=== PATIENT | male | born 2000 | race Caucasian/White ===

== ENCOUNTER 2024-12-31 09:43 | Outpatient (AMB) | payer OTHER, SELFPAY ==
--- NOTE | 2024-12-31 09:57 | MHC.PC.OV ---
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 Has not been to MD since pediatrics. Accompanied by girlfriend Patient notes daily anxiety. Infrequent panic attacks. He has dealt with anxiety since childhood. He was on previously on prozac years ago. He does not recall if it was effective but does not remember having any untoward side effects. He previously was drinking and smoking to deal with stress. 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 He has mild asthma and has used albuterol in the past. ROS CONSTITUTIONAL: Denies weight loss, fever and chills. HEENT: Denies changes in vision and hearing. Reports palpable neck nodes RESPIRATORY: Denies SOB and cough. CV: Denies palpitations and CP GI: Denies abdominal pain, nausea, vomiting and diarrhea. : Denies dysuria and urinary frequency. MSK: Denies new myalgia and joint pain. SKIN: Denies rash and pruritus. NEUROLOGICAL: Denies headache PSYCHIATRIC: Denies recent changes in mood. PHYSICAL EXAM: GENERAL: Alert and oriented x 3. NAD EYES: EOMI. Anicteric. HENT: Moist mucous membranes. No scleral icterus. scattered small cervical LN. heterogenous thyroid LUNGS: Clear to auscultation bilaterally. CARDIOVASCULAR: Regular rate and rhythm. No murmur. No JVD. ABDOMEN: Soft, non-tender +bs EXTREMITIES: No edema. Non-tender. SKIN: No rashes or lesions. Warm. NEUROLOGIC: No focal neurological deficits. CN II-XII grossly intact PSYCHIATRIC: Cooperative. 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 1. Little interest or pleasure in doing things: not at all 2. Feeling down, depressed, or hopeless: not at all 3. Trouble falling or staying asleep, or sleeping too much: not at all 4. Feeling tired or having little energy: several days 5. Poor appetite or overeating: not at all 6. Feeling bad about yourself - or that you are a failure or have let yourself or your family down: not at all 7. Trouble concentrating on things, such as reading the newspaper or watching television: not at all 8. Moving or speaking so slowly that other people could have noticed. Or the opposite - being so fidgety or restless that you have been moving around a lot more than usual: not at all 9. Thoughts that you would be better off or of hurting yourself in some way: not at all Total score: 1 Depression Screening Interpretation: Negative Depression Screening Done: Yes 05679 - PHQ-9 Billing: Yes Source: Developed by Drs. Yared Villatoro, Bettie Rodrigues, Ariel Solitario and colleagues, with an educational aleksander from [employer] Thrive Questionnaire Date Thrive assessed: 12/31/24 I am a: Patient What is your living situation today?: I have a steady place to live Within the past 12 months, did the food you bought not last and you didn't have the money to get more?: Never true Within the past 12 months, did you worry whether your food would run out before you got money to buy more?: Never true Do you have trouble paying for medicines?: No Do you have trouble getting transportation to medical appointments?: No Do you have trouble paying your heating and electricity bill?: No Do you have trouble taking care of your child, family member or friend?: No Do you have trouble with day-to-day activities such as bathing, preparing meals, shopping, managing finances, etc.?: No Are you currently unemployed and looking for a job?: No Are you interested in more education?: No Please select the resources that you would like help with: None Currently or been in a relationship where the following occur: No concerns reported THRIVE Score: 0 AUDIT C Alcohol Use Questionnaire (AUDIT-C) 1. How often do you have a drink containing alcohol?: Never Total Score: 0 KENJI-7 AMB Questionnaire KENJI-7 Date KENJI - 7 assessed: 12/31/24 Feeling nervous, anxious, or on edge: 1 = Several days Not being able to stop or control worryin = Several days Worrying too much about different things: 2 = More than half the days Trouble relaxin = More than half the days Being so restless that it is hard to sit still: 3 = Nearly every day Becoming easily annoyed or irritable: 0 = Not at all Feeling afraid as if something awful might happen: 0 = Not at all Total KENJI-7 score (0-4 normal; 5-9 mild; 10-14 moderate; 15-21 severe): 9 Source: Developed by Drs. Yared Villatoro, Bettie Rodrigues, Ariel Solitario and colleagues, with an educational aleksander from [employer] KENJI-7 Assessment Billing KENJI-7 Assessment Tool: KENJI-7 Assessment 09350 Physical exam (Primary Care) Vital Signs: Last Vital Signs Temp 97.6 F 12/31/24 10:02 Pulse 67 12/31/24 10:02 Resp 12 12/31/24 10:02 BP 128/64 12/31/24 10:02 Pulse Ox 98 12/31/24 10:02 Oxygen Delivery Method Room Air 12/31/24 10:02 BMI result Body Mass Index 20.6 Tobacco/Smoking Status: Tobacco use Status Tobacco use date assessed 12/31/24 12/31/24 10:05 Patient Tobacco Use Status Former Tobacco user 12/31/24 10:07 e-Cigarette/Vaping Use Never Used 12/31/24 10:07 PHQ-9: PHQ-9 Score PHQ-9: Total score 1 01/01/25 08:25 Depression Screening Interpretation: Negative Thrive Assessment: Date of Thrive Assessment Date Thrive assessed 12/31/24 12/31/24 10:09 Currently or been in a relationship where the following occur: No concerns reported Coding Level of Care Code New Pt Level 4 (19153) Complex EM visit Add On G2211 Diagnoses Mild intermittent asthma without complication J45.20 Asthma complication type: uncomplicated Asthma persistence: intermittent Asthma severity: mild Cervical lymphadenopathy R59.0 Generalized anxiety disorder F41.1 Additional Codes KENJI-7 Assessment Billing - KENJI-7 Assessment Tool: KENJI-7 Assessment 76916 ([id number]) PHQ-9 - 38812 - PHQ-9 Billing: Yes ([id number]) Assessment & Plan Assessment & Plan (1) Asthma: Code(s): J45.909 - Unspecified asthma, uncomplicated Category: Medical Qualifiers: Asthma complication type: uncomplicated Asthma persistence: intermittent Asthma severity: mild Qualified Code(s): J45.20 - Mild intermittent asthma, uncomplicated (2) Cervical lymphadenopathy: Code(s): R59.0 - Localized enlarged lymph nodes Category: Medical (3) Generalized anxiety disorder: Code(s): F41.1 - Generalized anxiety disorder Category: Medical Plan 24 yo to establish care Past medical, surgical, social reviewed KENJI with panice-start prozac 10mg. sparing lorazepam Asthma-ventolin sent Allergy/Anaphylaxis-epi sent Orders: Orders Lipid Panel 12/31/24 J45.909 - Unspecified asthma, uncomplicated, Z13.0 - Encounter for screening for diseases of the blood and blood-forming organs and certain disorders involving the immune mechanism, Z13.220 - Encounter for screening for lipoid disorders, Z13.228 - Encounter for screening for other metabolic disorders TSH reflex Free T4 12/31/24 J45.909 - Unspecified asthma, uncomplicated, Z13.0 - Encounter for screening for diseases of the blood and blood-forming organs and certain disorders involving the immune mechanism, Z13.220 - Encounter for screening for lipoid disorders, Z13.228 - Encounter for screening for other metabolic disorders Complete Blood Count Auto Diff 12/31/24 J45.909 - Unspecified asthma, uncomplicated, Z13.0 - Encounter for screening for diseases of the blood and blood-forming organs and certain disorders involving the immune mechanism, Z13.220 - Encounter for screening for lipoid disorders, Z13.228 - Encounter for screening for other metabolic disorders Comprehensive Met. Panel 12/31/24 J45.909 - Unspecified asthma, uncomplicated, Z13.0 - Encounter for screening for diseases of the blood and blood-forming organs and certain disorders involving the immune mechanism, Z13.220 - Encounter for screening for lipoid disorders, Z13.228 - Encounter for screening for other metabolic disorders Lyme IgG/IgM w/reflex to WB 12/31/24 J45.909 - Unspecified asthma, uncomplicated, Z13.0 - Encounter for screening for diseases of the blood and blood-forming organs and certain disorders involving the immune mechanism, Z13.220 - Encounter for screening for lipoid disorders, Z13.228 - Encounter for screening for other metabolic disorders US thyroid 12/31/24 R59.0 - Localized enlarged lymph nodes Referrals Dermatology Referral L98.9 - Disorder of the skin and subcutaneous tissue, unspecified Medications: New lorazepam 1 mg PO DAILY PRN 20 tabs 0RF anxiety Ventolin HFA 90 mcg/actuation (albuterol sulfate) 2 inhalations inhalation Q6H PRN 18 grams 1RF shortness of breath or wheezing NS J45.909 - Unspecified asthma, uncomplicated, Z91.010 - Allergy to peanuts, Z91.013 - Allergy to seafood Auvi-Q (epinephrine) do not exceed 3 doses per episode 0.3 mg (0.3 mL) IM Q10M PRN 2 ea 3RF anaphylaxis NS fluoxetine (Prozac) 10 mg PO DAILY 90 caps 3RF
[2024-12-31 10:02] VITALS: BP 128/64; PULSE 67; RESP 12; TEMP 36.4; O2SAT 98; BMI 20.6
== END 2024-12-31 10:26 | disposition home or self-care (01) ==
LOC: HO.HMCFM 09:44
PROVIDERS: PCP Internal Medicine; Visit Provider Internal Medicine
DX: J45.20 Mild intermittent asthma, uncomplicated (principal); R59.0 Localized enlarged lymph nodes; F41.1 Generalized anxiety disorder

== ENCOUNTER 2024-12-31 09:43 | Outpatient (REF) | payer OTHER, SELFPAY ==
[2024-12-31 14:30] LABS: MANUAL DIFF FLAG NO
[2024-12-31 14:48] LABS: Hematocrit 45.8 % (42.0-52.0); Hemoglobin 15.3 g/dl (14.0-18.0); Imm Gran Abs Auto 0.02 X10*3/uL (0.00-0.03); Imm Gran Pct Auto 0.4 % (0.0-0.4); Lymphocytes Absolute Auto 1.6 X10*3/uL (1.2-4.9); Mean Corpuscular HGB Conc 33.4 g/dl (31.0-36.0); Mean Corpuscular Hemoglobin 29.8 pg (27.0-33.0); Mean Corpuscular Volume 89.1 fL (80.0-98.0); NRBC Abs Auto 0.000 X10*3/uL (0.0-0.012); NRBC Pct Auto 0.0 /100WBC (0.0-0.2); Platelet Count 338 X10*3/uL (160-400); Red Blood Count 5.14 X10*6/uL (4.60-5.80); White Blood Count 5.5 X10*3/uL (4.8-10.8)
[2024-12-31 15:21] LABS: Alanine Aminotransferase 30 U/L (0-40); Albumin Level 5.2 g/dL (3.5-5.0); Alkaline Phosphatase 52 U/L (39-117); Anion Gap 13 (12-20); Aspartate Amino Transferase 30 U/L (5-37); Blood Urea Nitrogen 18 mg/dL (9-16); Calcium 9.9 mg/dL (8.4-10.2); Carbon Dioxide 25 mmol/L (22-29); Chloride 105 mmol/L (96-108); Cholesterol 215 mg/dL (<200); Estimated Glomerular Filt Rate > 60; HDL Cholesterol 68 mg/dL (>40); Potassium 4.3 mmol/L (3.3-5.1); Sodium 139 mmol/L (135-145); Total Protein 7.6 g/dL (6.5-8.0); Triglycerides 57 mg/dL (<150)
[2025-01-01 14:48] LABS: Lyme Abs Screen <0.90 index
== END 2024-12-31 09:44 | disposition home or self-care (01) ==
LOC: HO.WFDLDS 09:43
PROVIDERS: PCP Internal Medicine; Visit Provider Internal Medicine
DX: Z13.228 Encounter for screening for other metabolic disorders (principal); Z13.0 Encounter for screening for diseases of the blood and blood-forming organs and certain disorders involving the immune mechanism; Z13.220 Encounter for screening for lipoid disorders; J45.20 Mild intermittent asthma, uncomplicated; R59.0 Localized enlarged lymph nodes; F41.1 Generalized anxiety disorder
CPT/HCPCS: 36415; 80053; 80061; 84443; 85025; 86617; 86618; 96127; 99202

== ENCOUNTER 2025-01-24 16:13 | Outpatient (AMB) | payer OTHER, SELFPAY ==
--- NOTE | 2025-01-24 16:10 | MHC.PC.OV ---
Intake Visit Reasons: anxiety phone up telehealth or in person Allergies No Known Allergies Allergy (Verified 12/31/24 09:57) Tobacco use date assessed: 12/31/24 Dental Screening Dental Screen Date: 12/31/24 HPI HPI Comments History of Present Illness Details 24 year old male with a past medical history of anxiety, asthma, presenting for follow up. BH: Tolerating prozac well. No interval panic attacks. Still with baseline high anxiety, will stay on current 10mg dose for the time being. He has dealt with anxiety since childhood. He was on previously on prozac years ago. He does not recall if it was effective but does not remember having any untoward side effects. He previously was drinking and smoking to deal with stress. 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 He has mild asthma and has used albuterol in the past-this was sent at last visit Dermatology appt tomorrow. Ultrasound eenlwnjsb-ijlqyvx-pbdvqttf bilirubin h/o etoh resolved. Us neck/thyroid also scheduled for cervical LN ROS CONSTITUTIONAL: Denies weight loss, fever and chills. HEENT: Denies changes in vision and hearing. Reports palpable neck nodes RESPIRATORY: Denies SOB and cough. CV: Denies palpitations and CP GI: Denies abdominal pain, nausea, vomiting and diarrhea. : Denies dysuria and urinary frequency. MSK: Denies new myalgia and joint pain. SKIN: Denies rash and pruritus. NEUROLOGICAL: Denies headache PSYCHIATRIC: Denies recent changes in mood. 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 Current occupational exposures/hazards: Yes (chemicals) Cognitive needs: No Hearing needs: No Vision needs: Yes (glasses) Questionnaire Thrive Questionnaire Date Thrive assessed: 12/31/24 I am a: Patient What is your living situation today?: I have a steady place to live Within the past 12 months, did the food you bought not last and you didn't have the money to get more?: Never true Within the past 12 months, did you worry whether your food would run out before you got money to buy more?: Never true Do you have trouble paying for medicines?: No Do you have trouble getting transportation to medical appointments?: No Do you have trouble paying your heating and electricity bill?: No Do you have trouble taking care of your child, family member or friend?: No Do you have trouble with day-to-day activities such as bathing, preparing meals, shopping, managing finances, etc.?: No Are you currently unemployed and looking for a job?: No Are you interested in more education?: No Please select the resources that you would like help with: None Currently or been in a relationship where the following occur: No concerns reported THRIVE Score: 0 AUDIT C Alcohol Use Questionnaire (AUDIT-C) 1. How often do you have a drink containing alcohol?: Never 3. How often do you have six or more drinks on one occasion?: Never Total Score: 0 KENJI-7 AMB Questionnaire KENJI-7 Date KENJI - 7 assessed: 12/31/24 Source: Developed by Drs. Yared Villatoro, Bettie Rodrigues, Ariel Solitario and colleagues, with an educational aleksander from [employer]. Physical exam (Primary Care) Tobacco/Smoking Status: Tobacco use Status Tobacco use date assessed 12/31/24 01/24/25 16:12 Patient Tobacco Use Status Former Tobacco user 01/24/25 16:12 e-Cigarette/Vaping Use Never Used 01/24/25 16:12 Thrive Assessment: Date of Thrive Assessment Date Thrive assessed 12/31/24 01/24/25 16:12 Currently or been in a relationship where the following occur: No concerns reported Telehealth Telehealth Telehealth Platform: Telephone Location of provider rendering services: practice address Location of patient: address on file Patient Identification confirmed using: Name, : Yes Telehealth method: voice only Patient verbally consented to treatment: Yes Patient verbally consented to billing insurance company: Yes Patient informed of any privacy concerns related to visit: Yes Minutes spent on Phone/Video with Pt.: 22 Coding Level of Care Code Tele Est Pt Level 3 (49859) Diagnoses Generalized anxiety disorder F41.1 Mild intermittent asthma without complication J45.20 Asthma severity: mild Asthma persistence: intermittent Asthma complication type: uncomplicated Cervical lymphadenopathy R59.0 Assessment & Plan Assessment & Plan (1) Generalized anxiety disorder: Code(s): F41.1 - Generalized anxiety disorder Category: Medical (2) Asthma: Code(s): J45.909 - Unspecified asthma, uncomplicated Category: Medical Qualifiers: Asthma severity: mild Asthma persistence: intermittent Asthma complication type: uncomplicated Qualified Code(s): J45.20 - Mild intermittent asthma, uncomplicated (3) Cervical lymphadenopathy: Code(s): R59.0 - Localized enlarged lymph nodes Category: Medical Plan Anxiety-improved control on SSRI. no interval panic attacks asthma-well controlled on infrequent albuterol Cervical LN-us scheduled
== END 2025-01-24 16:56 | disposition home or self-care (01) ==
LOC: HO.HMCFM 16:13
PROVIDERS: PCP Internal Medicine; Visit Provider Internal Medicine
DX: F41.1 Generalized anxiety disorder (principal); J45.20 Mild intermittent asthma, uncomplicated; R59.0 Localized enlarged lymph nodes

== ENCOUNTER 2025-03-08 08:28 | Outpatient (REF) | payer OTHER, SELFPAY ==
--- NOTE | ~2025-03-08 | US_ITS ---
EXAMINATION: US THYROID CLINICAL INFORMATION: Cervical enlarged lymph nodes. History of thyroid issues COMPARISON: None available. TECHNIQUE: Linear transducer grayscale and color Doppler examination with attention to the region of the thyroid. FINDINGS: SIZE: Measurements of the thyroid lobes and nodules are given in sagittal, anteroposterior and transverse dimensions respectively. Right Thyroid Lobe: 5.3 x 1.2 x 1.6 cm, volume 5.4 mL. Parenchyma: The gland echotexture is homogeneous. Thyroid vascularity is normal. Left Thyroid Lobe: 5.2 x 1.1 x 1.9 cm, volume 5.4 mL. Parenchyma: The gland echotexture is homogeneous. Thyroid vascularity is normal. Isthmus: 0.2 cm in maximum AP dimension. There are no thyroid nodules. NODES: No lymphadenopathy is seen in the tissue surrounding the thyroid gland. US/US thyroid IMPRESSION: 1. Normal thyroid. 2. No abnormal lymphadenopathy in the neck. Electronically signed by: Damien Clayton MD 03/08/2025 09:25 AM ANDRE
--- NOTE | ~2025-03-08 | US_ITS ---
EXAMINATION: US ABDOMEN LIMITED CLINICAL INFORMATION: R17. Unspecified jaundice. COMPARISON: None available. TECHNIQUE: Real-time ultrasound right upper quadrant abdomen, limited seen grayscale technique. FINDINGS: PANCREAS: No peripancreatic fluid collections. LIVER: Liver measures 15 cm. Echotexture is normal. No nodular surface. No solid or cystic lesion. No hydronephrosis. GALLBLADDER: Fluid-filled nondistended. No pericholecystic fluid collection or gallbladder wall thickening. COMMON BILE DUCT: 4 mm.. RIGHT KIDNEY: 11 cm. Normal echotexture. Normal renal cortical thickness. No hydronephrosis. No solid or cystic lesion.. FREE FLUID: None. US/US abdomen limited IMPRESSION: No cholelithiasis or choledocholithiasis. Normal appearance of the liver and right kidney. No ascites. Electronically signed by: Catarino Ramirez MD 03/14/2025 12:45 PM EST
== END 2025-03-08 08:29 | disposition home or self-care (01) ==
LOC: HO.US 08:28
PROVIDERS: PCP Internal Medicine; Visit Provider Internal Medicine
DX: R59.0 Localized enlarged lymph nodes (principal); R17 Unspecified jaundice
CPT/HCPCS: 76536; 76705

== ENCOUNTER → 2025-03-08 08:30 | Outpatient (BNV) | payer OTHER, SELFPAY | PROVIDERS: PCP Internal Medicine; Visit Provider Radiology Diagnostic Radiology | DX: R59.0 Localized enlarged lymph nodes (principal) | CPT/HCPCS: 76536 ==